=== PATIENT | male | born 1970 | race Caucasian/White ===

== ENCOUNTER → 2022-09-18 | Outpatient (CLI) | payer BC ==
--- NOTE | 2022-09-18 10:28 | Diagnostic Imaging Report ---
PROCEDURE: US Renal Bilateral. TECHNIQUE: Multiple real-time grayscale images were obtained over the kidneys in various projections bilaterally. INDICATION: Flank pain. Renal calculus. FINDINGS: Right kidney measures 10 x 5.2 x 5.8 cm. Left kidney measures 11.4 x 6.2 x 7.2 cm. There is [id number] hydronephrosis on the left. There is a 2 cm echogenic structure consistent with calculus in the pelvis. No masses are seen. Bilateral ureteral jets are demonstrated. IMPRESSION: 1. Moderate hydronephrosis with 2 cm calculus in the left renal pelvis. 2. Right kidney appears normal. Dictated by: Dictated on workstation # [id number]
== END ==
LOC: RAD 09:00
PROVIDERS: ATTEND Specialist
DX: N13.2 Hydronephrosis with renal and ureteral calculous obstruction (principal)
CPT/HCPCS: 76770